=== PATIENT | female | born 1955 | race Caucasian/White ===

== ENCOUNTER 2021-02-28 07:13 | Day surgery (SDC) | payer BC, SELFPAY ==
[~2021-02-28] VITALS: Ht 168.9 cm; Wt 86.2 kg
[2021-02-28] MEDS ORDERED: SIMETHICONE 40 MG/0.6 ML ML ONE (07:19)
[2021-02-28] MEDS: fentaNYL CITRATE/PF 100 MCG/2 ML AMP ONE ×3 (08:25→08:34)
[2021-02-28] MEDS: MIDAZOLAM HCL 5 MG/5 ML VIAL ONE ×4 (08:25→08:37)
[2021-02-28] MEDS ORDERED: MIDAZOLAM HCL 5 MG/5 ML VIAL ONE (08:41)
[2021-02-28] MEDS ORDERED: EPINEPHrine JECT 0.1 MG/ML SYR ONE (08:49)
[2021-02-28 11:50] VITALS: BP_SYST 153
== END 2021-02-28 09:50 | disposition home or self-care (01) ==
LOC: SDS 07:13 → SMU 07:16 → SDS 09:50
PROVIDERS: ATTEND Internal Medicine
DX: R19.5 Other fecal abnormalities (principal); K64.8 Other hemorrhoids; D12.2 Benign neoplasm of ascending colon; D12.3 Benign neoplasm of transverse colon; K57.30 Diverticulosis of large intestine without perforation or abscess without bleeding; Z79.899 Other long term (current) drug therapy; Z20.822 Contact with and (suspected) exposure to COVID-19
CPT/HCPCS: 45380; 45385; 88305; 99152; 99153; G0378; J0171; J2250; J3010; U0003; 45381; 45384